=== PATIENT | male | born 1965 | race Caucasian/White ===

== ENCOUNTER → 2018-06-28 10:36 | Outpatient (CLI) | payer MEDICAID ==
[2018-06-28 11:08] LABS: UDS - AMPHET NEGATIVE QUAL (NEGATIVE); UDS - BARB NEGATIVE QUAL (NEGATIVE); UDS - BENZO NEGATIVE QUAL (NEGATIVE); UDS - COCAINE NEGATIVE QUAL (NEGATIVE); UDS - OPIATE POSITIVE QUAL (NEGATIVE); UDS - PCP NEGATIVE QUAL (NEGATIVE); UDS - THC NEGATIVE QUAL (NEGATIVE)
== END | disposition home or self-care (01) ==
LOC: D.LAB 10:36
PROVIDERS: Emergency Medicine
DX: F11.20 Opioid dependence, uncomplicated (principal)